=== PATIENT | male | born 1955 | race Caucasian/White ===

== ENCOUNTER → 2019-05-18 | Outpatient (CLI) | payer MEDICARE, BC, OTHER | LOC: RAD 07:44 | DX: Z47.1 Aftercare following joint replacement surgery (principal); Z96.651 Presence of right artificial knee joint ==

== ENCOUNTER 2022-04-24 20:46 | Emergency (ER) | payer MEDICARE, BC, OTHER ==
[~2022-04-24] VITALS: Ht 177.8 cm; Wt 82.6 kg
[2022-04-24 21:25] VITALS: BP 138/76
[2022-04-24] MEDS ORDERED: ZOCOR40 M1 PO (21:31)
[2022-04-24 22:07] LABS: BASO # 0.03 K/mm3 (0.02-0.10); EOS # 0.28 K/mm3 (0.04-0.40); EOS % 2.9 % (0.0-4.0); HEMATOCRIT 42.7 % (42.0-52.0); HEMOGLOBIN 14.9 g/dL (13.5-18.0); MEAN CELL VOLUME 90 fl (78-100); MEAN CORPUSCULAR HEMOGLOBIN 31 pg (27-31); MEAN CORPUSCULAR HGB CONC 35 g/dL (33-37); MEAN PLATELET VOLUME 9.3 fl (7.4-10.4); MONO # 1.02 K/mm3 (0.20-0.80); NEU # 6.48 K/mm3 (1.40-6.50); PLATELET COUNT 252 K/mm3 (130-400); RED BLOOD COUNT 4.74 M/mm3 (4.20-5.60); RED CELL DISTRIBUTION WIDTH 11.6 % (11.5-14.5); WHITE BLOOD COUNT 9.7 K/mm3 (4.8-10.8)
[2022-04-24 22:15] LABS: ALBUMIN 4.2 g/dL (3.4-4.8)
[2022-04-24 22:17] LABS: CALCIUM 9.3 mg/dL (8.3-10.5)
[2022-04-24 22:20] LABS: TOTAL BILIRUBIN 0.4 mg/dL (0.2-1.2)
[2022-04-24 22:26] LABS: D-DIMER 0.36 mg/L FEU (0.15-0.50)
[2022-04-24] MEDS ORDERED: TAMIFLU 75MG75 MG PO (23:37)
== END 2022-04-24 23:59 | disposition home or self-care (01) ==
LOC: ED 20:46
PROVIDERS: Physician Assistant
DX: J10.1 Influenza due to other identified influenza virus with other respiratory manifestations (principal); Z86.16 Personal history of COVID-19
CPT/HCPCS: 15972